=== PATIENT | male | born 1990 | race Caucasian/White ===

== ENCOUNTER 2019-11-18 15:58 | Emergency (ER) | payer BC, OTHER ==
[~2019-11-18] VITALS: Ht 162.5 cm; Wt 90.9 kg
[~2019-11-18 15:58] MED LIST: LIDOCAINE 1% INJ 20 ML 20 ML VIAL ONE
[2019-11-18] MEDS ORDERED: fentaNYL INJECTION 100 MCG/2 ML AMP ONE (15:59)
[2019-11-18] MEDS ORDERED: KETOROLAC 30 MG/ML VIAL ONE (15:59)
[2019-11-18] MEDS ORDERED: ONDANSETRON 4 MG/2 ML (SDV) Z0FRAN ONE (16:11)
--- NOTE | 2019-11-18 16:12 | ED Upper Extremity ---
General Stated Complaint: HAND INJURY Source: patient Exam Limitations: no limitations History of Present Illness Date Seen by Provider: Nov 18, 2019 Time Seen by Provider: 16:00 Initial Comments Patient presents to ER by private conveyance with family and chief complaint about an hour prior to arrival he caught his right hand in the back end of a wood splitter crushing his fourth and fifth metacarpal. He still has sensation in all of his digits. He feels a little bit of tingling in the distal tip of his fifth finger. He is able to move all 5 of his fingers. He is not up-to-date on his tetanus vaccination. He does not take any medications nor follow with a primary care provider. He has no drug allergies. He has not taken anything for pain which she rates it 8 out of 10. No history of bleeding disorders. Allergies and Home Medications Allergies Coded Allergies: No Known Drug Allergies (Unverified , 11/18/19) Patient Home Medication List Home Medication List Reviewed: Yes Review of Systems Constitutional: No chills, No diaphoresis EENTM: No ear discharge, No ear pain Respiratory: No cough, No short of breath Cardiovascular: No chest pain, No edema Gastrointestinal: No abdominal pain, No nausea Genitourinary: No discharge, No dysuria Musculoskeletal: see HPI; No back pain; joint pain Skin: see HPI, change in color Psychiatric/Neurological: Denies Anxiety, Denies Depressed All Other Systems Reviewed Negative Unless Noted: Yes Past Kptsjtg-Rdjzrr-Ymyrix Hx Patient Social History Alcohol Use: Denies Use Recreational Drug Use: No Smoking Status: Never a Smoker Physical Exam Vital Signs Vital Signs - First Documented 11/18/19 15:58 Temp 36.8 Pulse 111 Resp 22 B/P (MAP) 140/86 (104) Pulse Ox 97 O2 Delivery Room Air Capillary Refill : Height, Weight, BMI Height: '" Weight: lbs. oz. kg; BMI Method: General Appearance: WD/WN, moderate distress HEENT: PERRL/EOMI, pharynx normal Neck: full range of motion, supple, normal inspection Cardiovascular: normal peripheral pulses, regular rate, rhythm Respiratory: no respiratory distress, no accessory muscle use Gastrointestinal: non tender, soft Shoulder: normal inspection, non-tender, no evidence of injury, normal ROM Elbow/Forearm: normal inspection, non-tender, no evidence of injury, normal ROM, Right Wrist: Yes normal inspection, Yes non-tender, Yes no evidence of injury, Yes normal ROM Hand: Right Neurologic/Psychiatric: no motor/sensory deficits, alert, normal mood/affect, oriented x 3 Skin: other (, irregular C-shaped laceration on the right hand at the distal head of the palmar metacarpals.) Procedures/Interventions Wound Location: Upper Extremities Other Wound Location Right hand, palmar side, distal head of the fourth and fifth metacarpal. Wound Length (cm): 6 Wound's Depth, Shape: flap, sub Q, tendon (flexor tendon exposed that does not demonstrate any damage) Wound Explored: contaminated (two 0.2 mm bits of gravel removed) Irrigated w/ Saline (ccs): 500 Betadine Prep?: Yes (and chlorhexidine with sterile saline) Anesthesia: 1% Lidocaine Volume Anesthetic (ccs): 5 Wound Debrided: minimal Suture: Prolene Suture Size: 4-0 Number of Sutures: 12 Layer Closure?: 1 Sterile Dressing Applied?: Yes Progress T-shaped flap was reapproximated after being thoroughly cleaned and flushed. We only removed 2 small bits of gravel. The rest the wound was very clean. Hemostasis was already achieved. The tendon sheath was laid open and tendon was exposed but there is no Or overt damage to the tendon and his range of motion of all 5 fingers is intact. We then reapproximated the sheath and reapproximated the skin. The wound was consistently clean and flushed with saline as we sutured 11 simple interrupted sutures using 4-0 Prolene. We then put a corner stitch at the radial side of the fifth digit proximal phalanx. Patient tolerated procedure well. Progress/Results/Core Measures Results/Orders Lab Results Laboratory Tests Test 11/18/19 16:05 Range/Units White Blood Count 7.9 4.3-11.0 10^3/uL Red Blood Count 5.55 4.35-5.85 10^6/uL Hemoglobin 15.9 13.3-17.7 G/DL Hematocrit 45 40-54 % Mean Corpuscular Volume 81 80-99 FL Mean Corpuscular Hemoglobin 29 25-34 PG Mean Corpuscular Hemoglobin Concent 35 32-36 G/DL Red Cell Distribution Width 13.4 10.0-14.5 % Platelet Count 160 130-400 10^3/uL Mean Platelet Volume 12.3 H 7.4-10.4 FL Neutrophils (%) (Auto) 56 42-75 % Lymphocytes (%) (Auto) 33 12-44 % Monocytes (%) (Auto) 8 0-12 % Eosinophils (%) (Auto) 3 0-10 % Basophils (%) (Auto) 1 0-10 % Neutrophils # (Auto) 4.4 1.8-7.8 X 10^3 Lymphocytes # (Auto) 2.6 1.0-4.0 X 10^3 Monocytes # (Auto) 0.6 0.0-1.0 X 10^3 Eosinophils # (Auto) 0.2 0.0-0.3 10^3/uL Basophils # (Auto) 0.0 0.0-0.1 10^3/uL Sodium Level 141 135-145 MMOL/L Potassium Level 3.6 3.6-5.0 MMOL/L Chloride Level 106 98-107 MMOL/L Carbon Dioxide Level 21 21-32 MMOL/L Anion Gap 14 5-14 MMOL/L Blood Urea Nitrogen 12 7-18 MG/DL Creatinine 1.14 0.60-1.30 MG/DL Estimat Glomerular Filtration Rate > 60 BUN/Creatinine Ratio 11 Glucose Level 129 H 70-105 MG/DL Calcium Level 9.7 8.5-10.1 MG/DL Corrected Calcium 8.5-10.1 MG/DL Total Bilirubin 0.7 0.1-1.0 MG/DL Aspartate Amino Transf (AST/SGOT) 51 H 5-34 U/L Alanine Aminotransferase (ALT/SGPT) 101 H 0-55 U/L Alkaline Phosphatase 39 L 40-136 U/L Total Protein 7.3 6.4-8.2 GM/DL Albumin 4.9 H 3.2-4.5 GM/DL My Orders Orders - JOLENE,FATOU Kim Fentanyl Injection (Sublimaze Injection (11/18/19 16:15) Ketorolac Injection (Toradol Injection) (11/18/19 16:15) Dipht,Pertuss(Acell),Tet Adult (Boostrix (11/18/19 16:15) Cbc With Automated Diff (11/18/19 16:02) Comprehensive Metabolic Panel (11/18/19 16:02) Ed Iv/Invasive Line Start (11/18/19 16:02) Hand, Right, 3 Views (12/22/19 16:02) Cefazolin Injection (Ancef Injection) (11/18/19 16:15) Ondansetron Injection (Zofran Injectio (11/18/19 16:15) Ondansetron Injection (Zofran Injectio (11/18/19 16:11) Lidocaine 1% Inj 20 Ml (Xylocaine 1% Inj (11/18/19 16:45) Medications Given in ED Current Medications Medications Dose Ordered Sig/Molly Route Start Time Stop Time Status Last Admin Dose Admin Cefazolin Sodium 1000 mg/Sterile Water 10 ml @ 200 mls/hr ONCE ONCE IV 11/18/19 16:15 11/18/19 16:17 DC 11/18/19 16:10 200 MLS/HR Diphtheria/ Tetanus/Acell Pertussis 0.5 ml ONCE ONCE IM 11/18/19 16:15 11/18/19 16:16 DC 11/18/19 16:11 0.5 ML Fentanyl Citrate 75 mcg ONCE ONCE IVP 11/18/19 16:15 11/18/19 16:16 DC 11/18/19 16:06 75 MCG Ketorolac Tromethamine 30 mg ONCE ONCE IVP 11/18/19 16:15 11/18/19 16:16 DC 11/18/19 16:05 30 MG Ondansetron HCl 8 mg ONCE ONCE IVP 11/18/19 16:15 11/18/19 16:16 DC 11/18/19 16:15 8 MG Vital Signs/I&O 11/18/19 15:58 Temp 36.8 Pulse 111 Resp 22 B/P (MAP) 140/86 (104) Pulse Ox 97 O2 Delivery Room Air Progress Progress Note : Time: 16:07 Progress Note Plan to clean the wound with chlorhexidine and sterile saline. We'll get him up-to-date on his tetanus shot given a gram of Ancef and 75 g of fentanyl and 30 mg of Toradol for pain. Zofran if he needs it. X-ray of the hand. Diagnostic Imaging Diagonstic Imaging: Xray Plain Films/CT/US/NM/MRI: hand (r) Comments NAME: ASIM HEWITT Judy MED REC#: [id number] PT STATUS: REG ER : 1990 PHYSICIAN: FATOU FERNÁNDEZ MD ADMIT DATE: 11/18/19/ER Signed Date of Exam:11/18/19 HAND, RIGHT, 3 VIEWS CLINICAL HISTORY: Right hand caught in wood splitter. Cut on the fourth and fifth digits. COMPARISON: None. TECHNIQUE: Three views of the right hand. FINDINGS: There is no acute fracture or dislocation of the right hand. Alignment is anatomic. Soft tissue laceration is seen in between the fourth and fifth digits. IMPRESSION: 1. No acute fracture or dislocation in the right hand. Soft tissue laceration is noted in between the fourth and fifth digits. Dictated by: Dictated on workstation # [id number] Dict: 11/18/19 1628 Trans: 11/18/19 1637 [facility] [id number] Interpreted by: DARELL CALLOWAY DO Electronically signed by: DARELL CALLOWAY DO 11/18/19 1637 Reviewed: Reviewed by Me Departure Impression Primary Impression: Contusion of hand Qualified Codes: S60.221A - Contusion of right hand, initial encounter Additional Impressions: Crushing injury of hand and fingers Qualified Codes: S67.21XA - Crushing injury of right hand, initial encounter Hand laceration Qualified Codes: S61.421A - Laceration with foreign body of right hand, initial encounter Disposition: 01 HOME, SELF-CARE Condition: Improved Departure-Patient Inst. Decision time for Depature: 17:30 Referrals: NO,LOCAL PHYSICIAN (PCP) Primary Care Physician CORINNA POLLACK MD Patient Instructions: Laceration Repair With Stitches (DC), Wound Care Add. Discharge Instructions: Keep the wound clean with regular soap and water only. Change the dressing at least daily or as often as it becomes soiled. Do not use your hand for the next 3 days. Do not lift anything more than the weight of a pencil after that until cleared by a surgeon or Dr. Plan to follow-up in one week with Dr. Pollack. Bactrim one tablet twice a day for the next 7 days to prevent infection. If he's noticed increased redness and swelling with drainage or going up your arm then you need to follow-up with a doctor that day. You may return to the ER to have the sutures out in 10-14 days. Tylenol 650 mg every 8 hours as needed for pain. Ibuprofen 800 mg every 8 hours as needed for pain. Hydrocodone one tablet every 6 hours as needed for pain. If you have increased pain and swelling you can also check the dressing, elevate the hand above the level of your heart to reduce swelling and use ice for 20 minutes every 4 hours as needed for swelling and pain for the first 2-3 days. A thin layer of Vaseline over the sutures for placing the gauze dressing will help keep them from sticking and prevent infection. For nausea take one tablet of Zofran/ondansetron under the tongue every 6 hours as needed. Scripts Ondansetron (Ondansetron Odt) 4 Mg Tab.rapdis 4 MG PO Q6H PRN for NAUSEA/VOMITING, #8 TAB 0 Refills Prov: FATOU FERNÁNDEZ 11/18/19 Hydrocodone Bit/Acetaminophen (Hydrocodone/Acetaminophen 5/325mg Tablet) 1 Tab Tab 1 EACH PO Q4-6HR PRN for PAIN-MODERATE MDD 10 for 3 Days, #10 TAB 0 Refills Prov: FATOU FERNÁNDEZ 11/18/19 Sulfamethoxazole/Trimethoprim (Bactrim Ds Tablet) 1 Each Tablet 1 EACH PO BID for 7 Days, #14 TAB 0 Refills Prov: FATOU FERNÁNDEZ 11/18/19 Work/School Note: Work Release Form Date Seen in the Emergency Department: Nov 18, 2019 Return to Work: Nov 20, 2019 Restrictions: Need Release from Doctor Other Restrictions Listed Below: Do not use the right hand until 11/23/19. Restrictions: Do not lift more than a pencil with right hand until released by Copy Copies To 1: CORINNA POLLACK MD, TITUS J Nov 18, 2019 16:12
[2019-11-18] MEDS ORDERED: ONDANSETRON 4 MG/2 ML (SDV) Z0FRAN IVP ONE (16:15)
[2019-11-18] MEDS ORDERED: ceFAZolin INJECTION 1,000 MG in WATER (STERILE) FOR INJECTION 10 ML IV ONE (16:15)
[2019-11-18] MEDS ORDERED: TETANUS,DIPTH,PERTUSS P/F (BOOSTRIX) 0.5 ML VIAL IM ONE (16:15)
[2019-11-18] MEDS ORDERED: fentaNYL INJECTION 100 MCG/2 ML AMP IVP ONE (16:15)
[2019-11-18] MEDS ORDERED: KETOROLAC 30 MG/ML VIAL IVP ONE (16:15)
[2019-11-18 16:17] LABS: BASOPHILS % (AUTO) 1 % (0-10); EOSINOPHILS # (AUTO) 0.2 10^3/uL (0.0-0.3); EOSINOPHILS % (AUTO) 3 % (0-10); HEMATOCRIT 45 % (40-54); HEMOGLOBIN 15.9 G/DL (13.3-17.7); LYMPHOCYTES # (AUTO) 2.6 X 10^3 (1.0-4.0); LYMPHOCYTES % (AUTO) 33 % (12-44); MEAN CORPUSCULAR HEMOGLOBIN 29 PG (25-34); MEAN CORPUSCULAR HGB CONC 35 G/DL (32-36); MEAN CORPUSCULAR VOLUME 81 FL (80-99); MEAN PLATELET VOLUME 12.3 FL (7.4-10.4); MONOCYTES # (AUTO) 0.6 X 10^3 (0.0-1.0); MONOCYTES % (AUTO) 8 % (0-12); NEUTROPHILS # (AUTO) 4.4 X 10^3 (1.8-7.8); NEUTROPHILS % (AUTO) 56 % (42-75); PLATELET COUNT 160 10^3/uL (130-400); RED CELL DISTRIBUTION WIDTH 13.4 % (10.0-14.5); WHITE BLOOD COUNT 7.9 10^3/uL (4.3-11.0)
--- NOTE | 2019-11-18 16:34 | Diagnostic Imaging Report ---
CLINICAL HISTORY: Right hand caught in wood splitter. Cut on the fourth and fifth digits. COMPARISON: None. TECHNIQUE: Three views of the right hand. FINDINGS: There is no acute fracture or dislocation of the right hand. Alignment is anatomic. Soft tissue laceration is seen in between the fourth and fifth digits. IMPRESSION: 1. No acute fracture or dislocation in the right hand. Soft tissue laceration is noted in between the fourth and fifth digits. Dictated by: Dictated on workstation # [id number]
[2019-11-18 16:43] LABS: ALANINE AMINOTRANSFERASE 101 U/L (0-55); ALBUMIN 4.9 GM/DL (3.2-4.5); ALKALINE PHOSPHATASE 39 U/L (40-136); BILIRUBIN,TOTAL 0.7 MG/DL (0.1-1.0); BUN/CREATININE RATIO 11; CALCIUM 9.7 MG/DL (8.5-10.1); CARBON DIOXIDE 21 MMOL/L (21-32); CHLORIDE 106 MMOL/L (98-107); CREATININE SERUM 1.14 MG/DL (0.60-1.30); GFR ESTIMATED > 60; GLUCOSE 129 MG/DL (70-105); POTASSIUM 3.6 MMOL/L (3.6-5.0); SODIUM 141 MMOL/L (135-145); TOTAL PROTEIN 7.3 GM/DL (6.4-8.2)
[2019-11-18] MEDS ORDERED: LIDOCAINE 1% INJ 20 ML 20 ML VIAL INJ ONE (16:45)
[2019-11-18] MEDS ORDERED: ONDA4TAB11 PO (17:38)
[2019-11-18] MEDS ORDERED: SULF1TAB35 PO (17:38)
[2019-11-18] MEDS ORDERED: ACHD5005 PO (17:38)
[2019-11-18] MEDS ORDERED: RX-ONDANSETRON 4 MG ODT (ZOFRAN) PPK #4 PO STA (17:43)
[2019-11-18] MEDS ORDERED: RX-HYDROCODONE/APAP 5/325 MG #4 TAB PK PO PRN (17:45)
[2019-11-18 17:52] VITALS: BP 119/75
--- NOTE | 2019-11-18 18:27 | NUR ---
parents have been notified of urine culture collected on 11/14/19
== END 2019-11-18 17:53 | disposition home or self-care (01) ==
LOC: EDUNIT# 15:58 → ER 16:00
DX: S61.421A Laceration with foreign body of right hand, initial encounter (principal); S67.21XA Crushing injury of right hand, initial encounter; Z23 Encounter for immunization; W31.2XXA Contact with powered woodworking and forming machines, initial encounter
CPT/HCPCS: 36415; 73130; 80053; 85025; 90471; 90715; 96374; 96375

== ENCOUNTER 2019-11-21 14:45 | Emergency (ER) | payer BC ==
[~2019-11-21 14:45] MED LIST changes: +ACHD5005 PO; -LIDOCAINE 1% INJ 20 ML 20 ML VIAL ONE; +ONDA4TAB11 PO; +SULF1TAB35 PO
[2019-11-21 15:05] VITALS: BP 142/82
[2019-11-21] MEDS ORDERED: NS IV 1000 ML 1,000 ML IV SCH ×2 (15:17)
[2019-11-21 15:28] LABS: BASOPHILS % (AUTO) 1 % (0-10); EOSINOPHILS # (AUTO) 0.2 10^3/uL (0.0-0.3); EOSINOPHILS % (AUTO) 2 % (0-10); HEMATOCRIT 43 % (40-54); HEMOGLOBIN 15.1 G/DL (13.3-17.7); LYMPHOCYTES # (AUTO) 1.6 X 10^3 (1.0-4.0); LYMPHOCYTES % (AUTO) 18 % (12-44); MEAN CORPUSCULAR HEMOGLOBIN 29 PG (25-34); MEAN CORPUSCULAR HGB CONC 35 G/DL (32-36); MEAN CORPUSCULAR VOLUME 83 FL (80-99); MEAN PLATELET VOLUME 12.6 FL (7.4-10.4); MONOCYTES % (AUTO) 12 % (0-12); NEUTROPHILS % (AUTO) 68 % (42-75); PLATELET COUNT 161 10^3/uL (130-400); RED CELL DISTRIBUTION WIDTH 13.4 % (10.0-14.5); WHITE BLOOD COUNT 8.8 10^3/uL (4.3-11.0)
[2019-11-21] MEDS: PIPERACILLIN SODIUM/TAZOBACTAM 4.5 GM in NS (IVPB) 100 ML IV ONE ×2 (15:29→16:56)
[2019-11-21] MEDS ORDERED: CEFEPIME INJECTION 1,000 MG in WATER (STERILE) FOR INJECTION 10 ML IV ONE (15:30)
[2019-11-21] MEDS ORDERED: KETOROLAC 30 MG/ML VIAL IVP ONE (15:30)
[2019-11-21] MEDS ORDERED: VANCOMYCIN INJECTION 1,000 MG in NS (IVPB) 250 ML IV ONE ×4 (15:30)
--- NOTE | 2019-11-21 15:30 | NUR ---
Dr. Matos at the bedside to assess the patient. Sutures were removed per Dr. Matos.
[2019-11-21 15:35] LABS: INR 0.9 (0.8-1.4); PROTHROMBIN TIME PATIENT 12.8 SEC (12.2-14.7)
[2019-11-21 15:44] LABS: ALANINE AMINOTRANSFERASE 67 U/L (0-55); ALBUMIN 4.8 GM/DL (3.2-4.5); ALKALINE PHOSPHATASE 48 U/L (40-136); BILIRUBIN,TOTAL 0.6 MG/DL (0.1-1.0); BUN/CREATININE RATIO 10; CALCIUM 9.5 MG/DL (8.5-10.1); CARBON DIOXIDE 20 MMOL/L (21-32); CHLORIDE 104 MMOL/L (98-107); CREATININE SERUM 1.34 MG/DL (0.60-1.30); GFR ESTIMATED > 60; GLUCOSE 98 MG/DL (70-105); POTASSIUM 3.9 MMOL/L (3.6-5.0); SODIUM 138 MMOL/L (135-145); TOTAL PROTEIN 7.6 GM/DL (6.4-8.2)
--- NOTE | 2019-11-21 16:01 | ED Upper Extremity ---
General Chief Complaint: Upper Extremity Stated Complaint: POSSIBLE INFECTION Nursing Triage Note: Patient advises that he was evaluated in the emergency department tuesday secondary to injury to his right hand. He advised he got his hand caught in a wood splitter. Pt. state this morning he began noticing swelling and redness to his hand as well as his right arm. Nursing Sepsis Screen: No Definite Risk Source: patient Exam Limitations: no limitations History of Present Illness Date Seen by Provider: Nov 21, 2019 Time Seen by Provider: 14:50 Initial Comments Patient presents ER by private conveyance with spouse and chief complaint his crush injury from a wood splitter to his right hand Tuesday, 3 days ago he was seen here in the ER and closed has now become swollen red hot. He is not any fevers nausea vomiting. He's had occasional pain had to take one or 2 tablets of the hydrocodone a day as needed. Having a scant amount of drainage around the sutures. No other significant medical history. Allergies and Home Medications Allergies Coded Allergies: No Known Drug Allergies (Unverified , 11/18/19) Home Medications Hydrocodone Bit/Acetaminophen 1 Tab Tab, 1 EACH PO Q4-6HR PRN for PAIN-MODERATE Prescribed by: FATOU FERNÁNDEZ on 11/18/19 1738 Ondansetron 4 Mg Tab.rapdis, 4 MG PO Q6H PRN for NAUSEA/VOMITING Prescribed by: FATOU FERNÁNDEZ on 11/18/19 173 Sulfamethoxazole/Trimethoprim 1 Each Tablet, 1 EACH PO BID Prescribed by: FATOU FERNÁNDEZ on 11/18/19 1738 Patient Home Medication List Home Medication List Reviewed: Yes Review of Systems Constitutional: No chills, No fever, No malaise EENTM: No ear discharge, No ear pain Respiratory: No cough, No short of breath Cardiovascular: No chest pain, No edema Gastrointestinal: No abdominal pain, No constipation, No diarrhea, No nausea, No vomiting Genitourinary: No discharge, No dysuria Musculoskeletal: No back pain, No joint pain Past Ukernpp-Drssjp-Amgzpt Hx Patient Social History Alcohol Use: Denies Use Recreational Drug Use: No Smoking Status: Never a Smoker 2nd Hand Smoke Exposure: No Recent Foreign Travel: No Contact w/Someone Who Travel: No Recent Infectious Disease Expo: No Recent Hopitalizations: No Seasonal Allergies Seasonal Allergies: No Past Medical History Surgeries: Yes (cyst removed) Respiratory: No Cardiac: No Neurological: No Genitourinary: No Gastrointestinal: No Musculoskeletal: No Endocrine: No HEENT: No Cancer: No Psychosocial: No Blood Disorders: No Physical Exam Vital Signs Vital Signs - First Documented Capillary Refill : Less Than 3 Seconds Height, Weight, BMI Height: '" Weight: lbs. oz. kg; 34.00 BMI Method: General Appearance: WD/WN, mild distress HEENT: PERRL/EOMI, normal ENT inspection, pharynx normal Neck: full range of motion, supple, normal inspection Cardiovascular: normal peripheral pulses, regular rate, rhythm, tachycardia (115) Respiratory: lungs clear, normal breath sounds, no respiratory distress, no accessory muscle use Gastrointestinal: normal bowel sounds, non tender, soft Hand: Right, soft tissue tenderness (breakdown of the wound at the base of the fifth digit palmar side with her relax. Sutures intact.), stiffness, swelling Neurologic/Psychiatric: alert, normal mood/affect, oriented x 3 Skin: other (devitalized skin about one half to 2 cm of the along the previously closed wound at the base of the fifth digit right hand mild erythema and swelling right hand. No circumferential swelling or erythema.) Procedures/Interventions Suture Size: 4-0 Progress/Results/Core Measures Results/Orders Lab Results Laboratory Tests Test 11/21/19 15:13 11/21/19 15:46 Range/Units White Blood Count 8.8 4.3-11.0 10^3/uL Red Blood Count 5.23 4.35-5.85 10^6/uL Hemoglobin 15.1 13.3-17.7 G/DL Hematocrit 43 40-54 % Mean Corpuscular Volume 83 80-99 FL Mean Corpuscular Hemoglobin 29 25-34 PG Mean Corpuscular Hemoglobin Concent 35 32-36 G/DL Red Cell Distribution Width 13.4 10.0-14.5 % Platelet Count 161 130-400 10^3/uL Mean Platelet Volume 12.6 H 7.4-10.4 FL Neutrophils (%) (Auto) 68 42-75 % Lymphocytes (%) (Auto) 18 12-44 % Monocytes (%) (Auto) 12 0-12 % Eosinophils (%) (Auto) 2 0-10 % Basophils (%) (Auto) 1 0-10 % Neutrophils # (Auto) 6.0 1.8-7.8 X 10^3 Lymphocytes # (Auto) 1.6 1.0-4.0 X 10^3 Monocytes # (Auto) 1.0 0.0-1.0 X 10^3 Eosinophils # (Auto) 0.2 0.0-0.3 10^3/uL Basophils # (Auto) 0.0 0.0-0.1 10^3/uL Prothrombin Time 12.8 12.2-14.7 SEC INR Comment 0.9 0.8-1.4 Activated Partial Thromboplast Time 29 24-35 SEC Sodium Level 138 135-145 MMOL/L Potassium Level 3.9 3.6-5.0 MMOL/L Chloride Level 104 98-107 MMOL/L Carbon Dioxide Level 20 L 21-32 MMOL/L Anion Gap 14 5-14 MMOL/L Blood Urea Nitrogen 14 7-18 MG/DL Creatinine 1.34 H 0.60-1.30 MG/DL Estimat Glomerular Filtration Rate > 60 BUN/Creatinine Ratio 10 Glucose Level 98 70-105 MG/DL Calcium Level 9.5 8.5-10.1 MG/DL Corrected Calcium 8.5-10.1 MG/DL Total Bilirubin 0.6 0.1-1.0 MG/DL Aspartate Amino Transf (AST/SGOT) 30 5-34 U/L Alanine Aminotransferase (ALT/SGPT) 67 H 0-55 U/L Alkaline Phosphatase 48 40-136 U/L Total Protein 7.6 6.4-8.2 GM/DL Albumin 4.8 H 3.2-4.5 GM/DL Lactic Acid Level 1.53 0.50-2.00 MMOL/L My Orders Orders - FATOU FERNÁNDEZ Cbc With Automated Diff (11/21/19 15:17) Comprehensive Metabolic Panel (11/21/19 15:17) Blood Culture (11/21/19 15:17) Protime With Inr (11/21/19 15:17) Partial Thromboplastin Time (11/21/19 15:17) Ed Iv/Invasive Line Start (11/21/19 15:17) Ed Iv/Invasive Line Start (11/21/19 15:17) Vital Signs Adult Sepsis Patie Q15M (11/21/19 15:17) Remove Rings In Anticipation O (11/21/19 15:17) Lactic Acid Analyzer (11/21/19 15:17) Ns Iv 1000 Ml (Sodium Chloride 0.9%) (11/21/19 15:17) Cefepime Injection (Maxipime Injection) (11/21/19 15:30) Vancomycin Injection (Vancomycin Injecti (11/21/19 15:30) Piperacillin Sodium/Tazobactam (Zosyn Vi (11/21/19 15:30) Vancomycin Injection (Vancomycin Injecti (11/21/19 15:30) Ed Iv/Invasive Line Start (11/21/19 15:17) Ns Iv 1000 Ml (Sodium Chloride 0.9%) (11/21/19 15:17) Ketorolac Injection (Toradol Injection) (11/21/19 15:30) Medications Given in ED Current Medications Medications Dose Ordered Sig/Molly Route Start Time Stop Time Status Last Admin Dose Admin Cefepime HCl 1000 mg/Sterile Water 10 ml @ 200 mls/hr ONCE ONCE IV 11/21/19 15:30 11/21/19 15:32 DC 11/21/19 15:29 200 MLS/HR Ketorolac Tromethamine 30 mg ONCE ONCE IVP 11/21/19 15:30 11/21/19 15:31 DC 11/21/19 15:29 30 MG Piperacillin Sod/ Tazobactam Sod 4.5 gm/Sodium Chloride 100 ml @ 200 mls/hr ONCE ONCE IV 11/21/19 15:30 11/21/19 15:59 DC 11/21/19 15:29 200 MLS/HR Vancomycin HCl 1000 mg/Sodium Chloride 250 ml @ 250 mls/hr ONCE ONCE IV 11/21/19 15:30 11/21/19 16:29 11/21/19 15:30 250 MLS/HR Vital Signs/I&O 11/21/19 11/21/19 15:05 15:05 Temp 36.7 36.7 Pulse 109 109 Resp 14 14 B/P (MAP) 142/82 (102) 142/82 (102) Pulse Ox 97 97 O2 Delivery Room Air Room Air Blood Pressure Mean: 102 Progress Progress Note : Time: 16:01 Progress Note Seen, examined and debrided by Dr. Matos at the bedside. Wound was thoroughly flushed with 500 cc of sterile saline and then repacked with iodinated gauze and dressed with over 4 hours, Karma and Cobyamil. They started she did well has no discomfort. Spoke with him and the and taught how to change the dressing. He has a [id number] who is a nurse practitioner who will help the wound dressings. His tachycardia 120 heart rate on arrival prompted a septic workup however he does not have elevated white count fever or other signs of sepsis. His heart rate is improving with some IV fluids, Toradol and antibiotics. He does not have significant redness outside of his hand. He does not have circumferential swelling. He has sensation in all 5 digits and full range of motion. He would prefer outpatient follow-ups overdue and have him follow with Dr. Alfaro, hand surgeon. Discussed our concerns for healing by secondary intent causing scarring and might limit his range of motion and the reason he would need to follow-up with a hand surgeon and he states his understanding. Departure Impression Primary Impression: Infection, wound status post trauma Disposition: 01 HOME, SELF-CARE Condition: Improved Departure-Patient Inst. Decision time for Depature: 17:00 Referrals: JEANCARLOS ALFARO DO NO,LOCAL PHYSICIAN (PCP) Primary Care Physician Patient Instructions: Laceration Infection (DC), Wound Care (DC) Add. Discharge Instructions: Keep the wound clean by running water over it. Do not scrub the wound base. Do not use peroxide, alcohol, iodine etc. Gentle hand soap and water only. Change the dressing as often as it becomes soiled or at least daily. Pull the old iodinated gauze out, rinsed the wound and replace gauze until the wound bed is filled. Use the hydrocodone one tablet every 6 hours as needed for breakthrough pain or 30 minutes prior to dressing changes if needed. Continue the Bactrim 2 tablets twice a day for 7 days. Return to the ER if the swelling goes up your arm, you develop fevers, or you have intractable pain or other worrisome symptoms. Tomorrow, 11/22/[address] Alfaro, hand surgeon and request a follow-up appointment in the next week. All discharge instructions reviewed with patient and/or family. Voiced understanding. Scripts Sulfamethoxazole/Trimethoprim (Bactrim Ds Tablet) 1 Each Tablet 2 EACH PO BID for 7 Days, #28 TAB 0 Refills Prov: FATOU FERNÁNDEZ 11/21/19 Hydrocodone Bit/Acetaminophen (Hydrocodone/Acetaminophen 5/325mg Tablet) 1 Tab Tab 1 EACH PO Q4-6HR PRN for PAIN-MODERATE MDD 10 for 3 Days, #8 TAB 0 Refills Prov: FATOU FERNÁNDEZ 11/21/19 Copy Copies To 1: JEANCARLOS ALFARO DO FATOU FERNÁNDEZ Nov 21, 2019 16:01
[2019-11-21] MEDS ORDERED: SULF1TAB35 PO (16:38)
[2019-11-21] MEDS ORDERED: ACHD5005 PO (16:38)
[2019-11-21 17:37] VITALS: BP 129/74
[2019-11-21 17:40] VITALS: BP 129/74
--- NOTE | 2019-11-22 14:13 | Consultation - Surgery ---
History of Present Illness History of Present Illness Patient Consulted On(mary/time) 11/22/19 14:07 Date Seen by Provider: Nov 22, 2019 Time Seen by Provider: 15:30 History of Present Illness Consult requested by Dr. Fernández for abscess right hand. Seen and evaluated in emergency dept. Patient is a 29 year old male who had crush injury to his right hand 3 days ago with wood splitter. Hand wound cleaned out and closed. The right hand has become more swollen and red hot. He has pain in the right hand that is under control with hydrocodone. He is having some purulent drainage around the distal portion of wound. He is tachycardic. Not having any sensation or motor changes. Denies fever sweats chills shortness of breath or chest pain. Allergies and Home Medications Allergies Coded Allergies: No Known Drug Allergies (Unverified , 11/18/19) Home Medications Hydrocodone Bit/Acetaminophen 1 Tab Tab, 1 EACH PO Q4-6HR PRN for PAIN-MODERATE Prescribed by: FATOU FERNÁNDEZ on 11/18/19 1738 Hydrocodone Bit/Acetaminophen 1 Tab Tab, 1 EACH PO Q4-6HR PRN for PAIN-MODERATE Prescribed by: FATOU FERNÁNDEZ on 11/21/19 1638 Ondansetron 4 Mg Tab.rapdis, 4 MG PO Q6H PRN for NAUSEA/VOMITING Prescribed by: FATOU FERNÁNDEZ on 11/18/19 1738 Sulfamethoxazole/Trimethoprim 1 Each Tablet, 1 EACH PO BID Prescribed by: FATOU FERNÁNDEZ on 11/18/19 1738 Sulfamethoxazole/Trimethoprim 1 Each Tablet, 2 EACH PO BID Prescribed by: FATOU FERNÁNDEZ on 11/21/19 1638 Patient Home Medication List Home Medication List Reviewed: Yes Past Cpxriwx-Knmmug-Destjr Hx Patient Social History Alcohol Use: Denies Use Recreational Drug Use: No Smoking Status: Never a Smoker 2nd Hand Smoke Exposure: No Recent Foreign Travel: No Contact w/Someone Who Travel: No Recent Infectious Disease Expo: No Recent Hopitalizations: No Seasonal Allergies Seasonal Allergies: No Surgeries History of Surgeries: Yes (cyst removed) Respiratory History of Respiratory Disorde: No Cardiovascular History of Cardiac Disorders: No Neurological History of Neurological Disord: No Genitourinary History of Genitourinary Disor: No Gastrointestinal History of Gastrointestinal Di: No Musculoskeletal History of Musculoskeletal Dis: No Endocrine History of Endocrine Disorders: No HEENT History of HEENT Disorders: No Cancer History of Cancer: No Psychosocial History of Psychiatric Problem: No Blood Transfusions History of Blood Disorders: No Reviewed Nursing Assessment Reviewed/Agree w Nursing PMH: Yes Family Medical History Significant Family History: No Pertinent Family Hx Review of Systems-General Constitutional: no symptoms reported EENTM: no symptoms reported Respiratory: no symptoms reported Cardiovascular: see HPI Gastrointestinal: no symptoms reported Genitourinary: no symptoms reported Musculoskeletal: no symptoms reported Skin: see HPI Psychiatric/Neurological: No Symptoms Reported Physical Exam-General Problems Physical Exam Vital Signs Vital Signs - First Documented Capillary Refill : Less Than 3 Seconds General Appearance: WD/WN, no apparent distress HEENT: PERRL/EOMI, normal ENT inspection Neck: non-tender, supple Respiratory: chest non-tender, no respiratory distress, no accessory muscle use Cardiovascular: tachycardia Gastrointestinal: non tender, soft Rectal: deferred Back: no CVA tenderness Extremities: other (right hand swelling with crush injury with flap that is palmar/5th digit, small area of skin at base of 5th digit ) 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, no motor/sensory deficits, alert, normal mood/affect, oriented x 3 Skin: normal color, other (erythema right palmar hand around sutures with some purulent drainage) Lymphatic: no adenopathy Data Review Labs Laboratory Tests 11/21/19 15:13: White Blood Count 8.8, Red Blood Count 5.23, Hemoglobin 15.1, Hematocrit 43, Mean Corpuscular Volume 83, Mean Corpuscular Hemoglobin 29, Mean Corpuscular Hemoglobin Concent 35, Red Cell Distribution Width 13.4, Platelet Count 161, Mean Platelet Volume 12.6H, Neutrophils (%) (Auto) 68, Lymphocytes (%) (Auto) 18, Monocytes (%) (Auto) 12, Eosinophils (%) (Auto) 2, Basophils (%) (Auto) 1, Neutrophils # (Auto) 6.0, Lymphocytes # (Auto) 1.6, Monocytes # (Auto) 1.0, Eosinophils # (Auto) 0.2, Basophils # (Auto) 0.0, Prothrombin Time 12.8, INR Comment 0.9, Activated Partial Thromboplast Time 29, Sodium Level 138, Potassium Level 3.9, Chloride Level 104, Carbon Dioxide Level 20L, Anion Gap 14, Blood Urea Nitrogen 14, Creatinine 1.34H, Estimat Glomerular Filtration Rate > 60, BUN/Creatinine Ratio 10, Glucose Level 98, Calcium Level 9.5, Corrected Calcium , Total Bilirubin 0.6, Aspartate Amino Transf (AST/SGOT) 30, Alanine Aminotransferase (ALT/SGPT) 67H, Alkaline Phosphatase 48, Total Protein 7.6, Albumin 4.8H 11/21/19 15:46: Lactic Acid Level 1.53 Assessment/Plan Assessment/Plan Assessment/Plan crush injury right hand from tree splitter infected wound right hand continue with antibiotics as prescribed would recommend consultation with hand surgeon, due to scarring concern for limited mobility could be issue in future wound care daily and as needed. removed all sutures, evacuated purulent material and obtained culture, irrigated with copious amount of saline. approximately 2x0.5 cm of skin debrided from wound sharply with scissors. packed with Iodoform guaze. sterile bandage applied. ASIM RICHARDSON DO Nov 22, 2019 14:13
--- NOTE | 2019-11-23 11:54 | NUR ---
Dr. Sandoval's office called to say they're unable to see patient as is out of town and other orthos in the office unable to see the patient. Patient notified and asked if they had a preference on where they'd like their records sent for a hand surgeon. Patient wanted records and they will follow up with a hand surgeon.
== END 2019-11-21 17:45 | disposition home or self-care (01) ==
LOC: EDUNIT# 14:45 → ER 14:48
DX: T81.49XA Infection following a procedure, other surgical site, initial encounter (principal)
CPT/HCPCS: 36415; 80053; 83605; 85025; 85610; 85730; 87040; 87070; 87205; 96361; 96365; 96367; 96375